=== PATIENT | female | born 1945 | race Caucasian/White ===

== ENCOUNTER 2017-11-17 17:41 | Inpatient (IN) ==
[2017-11-17] MEDS ORDERED: *HR* Etomidate 20 MG/10 ML AMPUL IVP ONE (18:19)
--- NOTE | 2017-11-17 20:10 | Emergency Department Note ---
Disposition Clinical Impression: Dislocation of right shoulder joint Qualifiers: Encounter type: initial encounter Qualified Code(s): S43.004A - Unspecified dislocation of right shoulder joint, initial encounter Glenoid fracture of shoulder Qualifiers: Encounter type: initial encounter Disposition: Admitted As Inpatient Condition: Good Referrals: Arnel Gonzalez MD [Primary Care Provider] - Forms: ED Satisfaction Letter Time of Disposition: 20:36 General Adult HPI - General Chief complaint: ED Extremity Injury, Upper Stated complaint: "sent from u/c for dislocated shoulder" Time Seen by Provider: 11/17/17 17:57 Source: patient Mode of arrival: ambulatory Limitations: no limitations Nursing Notes Reviewed: Yes Vital Signs Reviewed: Yes - History of Present Illness HPI Narrative: 72 yo F here for right shoulder pain. Patient went to urgent care secondary to a fall today while pushing a family member on a swing. She injured her right shoulder. At urgent care they did an x-ray which showed a shoulder dislocation and sent her to the ER. Her pain is all isolated to the right shoulder. She is right hand dominant. No other injuries. Pain Scale: 8 - Related Data Home Medications Medication Instructions Recorded Confirmed Aspirin 11/17/17 Atorvastatin 11/17/17 CloNIDine 11/17/17 Dicyclomine 11/17/17 Fish Oil 11/17/17 Glimepiride 11/17/17 Isosorbide MONOnitrate 11/17/17 Losartan-Hctz 50-12.5 mg Tab 11/17/17 Magnesium Oxide 11/17/17 Metoprolol 11/17/17 Oxybutynin 11/17/17 11/17/17 Tramadol HCl 11/17/17 metFORMIN 11/17/17 Allergies Allergy/AdvReac Type Severity Reaction Status Date / Time carvedilol [From Coreg] AdvReac Palpitation Verified 11/17/17 16:07 s Review of Systems: Gen.: No fevers or chills or new weakness Eyes: Denies double vision or any vision changes Ears: Denies any otalgia Pharynx: Denies sore throat CV: Denies chest pain. Denies palpitations Respiratory: Denies any cough or sputum production. No shortness of breath. GI: Denies any nausea, vomiting, diarrhea, constipation. Denies abdominal pain Neuro: Denies any headache. No problems with ambulation. No numbness. Skin: Denies any rashes or abrasions Psych: Denies any depression or suicidal or homicidal ideation Musculoskeletal: Denies any arthralgias or myalgias Past Medical History - Past Medical History Medical history: Reports: non-contributory - Social History Smoking Status: Never smoker Smokeless Tobacco Status: No Alcohol use: Reports: none Physical Exam - General General appearance: alert, in no apparent distress - Head Head exam: atraumatic, normocephalic - Eye Eye exam: Present: normal appearance - Neck Neck exam: Present: normal inspection - Chest Chest inspection: Present: normal inspection - Respiratory Respiratory exam: Present: normal lung sounds bilaterally - Cardiovascular Cardiovascular exam: Present: regular rate, normal rhythm - Abdominal Exam Abdominal exam: Present: soft, Non-Tender - Expanded Upper Extremity Exam Shoulder exam: Present: tenderness (Diffuse tenderness over the right anterior shoulder), dislocation (Patient with an anterior glenohumeral dislocation. She has crepitus with range of motion in this region.). Absent: full ROM - Neurological Exam Neurological exam: Present: alert, oriented X3 - Psychiatric Psychiatric exam: Present: normal affect, normal mood - Skin Skin exam: Present: warm, dry, intact Course Vital Signs Temperature 98.3 F 11/17/17 17:45 Pulse Rate 78 11/17/17 17:45 Respiratory Rate 18 11/17/17 17:45 Blood Pressure 201/96 11/17/17 17:45 O2 Sat by Pulse Oximetry 97 11/17/17 17:45 Temperature 98.3 F 11/17/17 17:45 Pulse Rate 83 11/17/17 19:07 Respiratory Rate 20 11/17/17 19:24 Blood Pressure 221/113 11/17/17 19:07 O2 Sat by Pulse Oximetry 99 11/17/17 19:24 Oxygen Delivery Oxygen Delivery [] Nasal Cannula Oxygen Delivery [] Nasal Cannula Oxygen Delivery [] Nasal Cannula Oxygen Delivery Room Air Procedures - Orthopedic Joint Reduction Joint #1 Consent Obtained: written consent Time Out Performed: Yes Side: right Joint Reduction Location: shoulder ASA Classification: CLASS I-Normal, healthy patient Analgesia: procedural sedation Shoulder Technique Used (if applicable): traction/counter-traction, external rotation Post-reduction neuro exam: intact Post-reduction vascular: intact Post Reduction X-Ray Obtained: Yes Post Reduction X-Ray Results: not reduced (Patient with an inferior glenoid rim fracture) Splint Applied: Yes Patient Tolerated Procedure: well, no complications Medical Decision Making - MDM Narrative Medical decision making narrative: I spoke with Dr. Wilkes with [facility] to the procedure. I explained to him that she had what appeared to be a Bankart lesion on the x-ray from the urgent care. We proceeded as directed with this. I was concerned based on the size of this Bankart lesion that it may not go back into place. Unfortunately, after reducing the shoulder 3 times and getting it back into appropriate position a Dislocating spontaneously. A follow-up films of the right shoulder shows a glenoid rim fracture. I feel that that she had from the get go. Her shoulder was very easy to reduce but was unable to stay in location. I spoke with Dr. Munroe with Ortho. He took this case as it was a shoulder case. We will admit the patient. Do a CT scan of the shoulder. He will evaluate her in the morning. - Medical Records Medical records reviewed: Yes I reviewed the patient's medical records. - Lab Data Lab results reviewed: Yes I reviewed the patient's lab results. - Radiology Data Radiology results reviewed: Yes I reviewed the patient's radiology results.
[2017-11-17 21:18] LABS: Basophils % 0.3 %; Eosinophils # 0.1 K/mcL (0.0-0.6); Eosinophils % 1.1 %; Hematocrit 33.9 % (35.3-44.9); Hemoglobin 11.4 g/dL (11.5-15.4); Immature Granulocytes % 0.6 % (0-4); Lymphocytes # 2.1 K/mcL (0.6-4.6); Lymphocytes % 16.7 %; Mean Corpuscular HGB Conc 33.6 g/dL (31.6-35.5); Mean Corpuscular Hemoglobin 31.9 pg (28.0-33.3); Mean Platelet Volume 9.1 fL (9.4-12.4); Monocytes # 0.9 K/mcL (0.0-1.3); Monocytes % 6.8 %; Neutrophils # 9.4 K/mcL (1.6-8.9); Platelet Count 263 K/mcL (140-400); Red Blood Count 3.57 M/mcL (3.82-4.97); Segmented Neutrophils % 74.5 %
[2017-11-17] MEDS: *HR* HYDROcodone/Acet 5/325 mg TABLET PO PRN (21:22)
[2017-11-17 21:24] LABS: Prothrombin Time 10.7 Seconds (9.4-12.1)
[2017-11-17 21:27] LABS: Activated Partial Thrombo Time 24.2 Seconds (26.0-36.0)
[2017-11-17 21:38] LABS: Potassium 5.2 mEq/L (3.5-5.1)
[2017-11-17] MEDS ORDERED: Naloxone 0.4 MG/ML INJ IVP PRN (22:24)
[2017-11-17] MEDS ORDERED: *HR* Dextrose 50 % in Water (Syg) 50 ML SYRINGE IVP PRN (22:27)
[2017-11-17] MEDS ORDERED: Dextrose Gel 15 GM/37.5 ML TUBE PO PRN ×2 (22:27)
[2017-11-17] MEDS ORDERED: D5% in Water 1,000 ML IVC PRN (22:27)
[2017-11-17] MEDS ORDERED: Tdap (Boostrix) Vaccine 0.5 ML SYRINGE IM ONE (22:31)
--- NOTE | 2017-11-17 22:36 | Internal Med History&Physical ---
Date of Encounter: 11/17/17 Time of Encounter: 21:30 Assessment and Plan (1) Hypertension Current visit: Yes Status: Acute Continue home medications. Continue monitoring dose tomorrow with small amount of water although patient will be kept nothing by mouth Qualifiers: Hypertension type: essential hypertension Qualified Code(s): I10 - Essential (primary) hypertension (2) Diabetes mellitus Current visit: Yes Status: Acute Patient take pills at home. 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 Patient denies chest pain or shortness of breath. - EKG has been done in ER, not reviewed because it is not available in floor now. - Continue home medication beta josh and atorvastatin. Hold aspirin temporarily for surgery Qualifiers: Coronary Disease-Associated Artery/Lesion type: bypass graft [place] vs. transplanted heart: [place] heart Associated angina: without angina Qualified Code(s): I25.810 - Atherosclerosis of coronary artery bypass graft(s) without angina pectoris (4) DVT prophylaxis Current visit: Yes Status: Acute EPCD. May start anticoagulation after surgery (5) Dislocation of right shoulder joint Current visit: Yes Status: Acute Continue pain medication. Orthopedic consult for surgery Qualifiers: Encounter type: initial encounter Qualified Code(s): S43.004A - Unspecified dislocation of right shoulder joint, initial encounter (6) Anterior dislocation of right shoulder Current visit: No Status: Acute Management as above Qualifiers: Encounter type: initial encounter Qualified Code(s): S43.014A - Anterior dislocation of right humerus, initial encounter Internal Medicine - H&P: HPI Chief complaint: right shoulder pain Admitted From: Home Plans for Post Hospital Care: Home History of present illness: Ms. Muniz is a 72 year old female with history of diabetes, hypertension, CAD S/P CABG and stent about 20 years ago, presented to ER for right foot pain. Patient said he has mechanical fall this afternoon when playing with her grandson. Patient denies loss of consciousness. Patient denies head injury. Patient denies pain on any other part of body except right shoulder. Patient has laceration on the right wrist area, has small amount of bleeding, stopped now. In the emergency room, CT right shoulder shows humeral fracture. Orthopedic consult was informed by ER. Patient is admitted for surgery. Patient denies chest pain, shortness of breath, nausea, or vomiting. Past Med Surg Social Fam HX - Past Medical History Medical history: non-contributory - Social History Smoking Status: Never smoker Smokeless Tobacco Status: No Alcohol use: none Internal Medicine - H&P: Meds Aspirin Enteric Coated [Aspirin EC] 81 mg PO DAILY 11/17/17 [History] Atorvastatin Calcium [Lipitor] 80 mg PO HS 11/17/17 [History] Dicyclomine [Bentyl] 10 mg PO QID 11/17/17 [History] Fish Oil/Dha/Epa [Fish Oil 1,200 mg Fish Oil] 1 each PO TID 11/17/17 [History] Glimepiride [Amaryl] 4 mg PO DAILY 11/17/17 [History] Isosorbide MONOnitrate (24 HR) [Imdur] 60 mg PO DAILY 11/17/17 [History] Levothyroxine [Synthroid] 88 mcg PO 0630 11/17/17 [History] Losartan/Hydrochlorothiazide [Hyzaar 100-25 Tablet] 1 each PO DAILY 11/17/17 [ History] Magnesium Oxide [Mag-Ox] 400 mg PO DAILY 11/17/17 [History] Metformin HCl [Glucophage] 1,000 mg PO DAILY 11/17/17 [History] Metoprolol Tartrate 75 mg PO BID 11/17/17 [History] Multivitamin [One Daily Multivitamin] 1 each PO DAILY 11/17/17 [History] Niacin [Niacor] 500 mg PO DAILY 11/17/17 [History] Oxybutynin [Ditropan] 5 mg PO BID 11/17/17 [History] Tramadol HCl [Ultram] 50 mg PO DAILY PRN 11/17/17 [History] cloNIDine HCl [Clonidine HCl] 0.2 mg PO BID 11/17/17 [History] 3 Allergy/AdvReac Type Severity Reaction Status Date / Time carvedilol [From Coreg] AdvReac Palpitation Verified 11/17/17 16:07 s All Systems PM: A 10-system review of systems was performed and is negative for pertinent findings except as documented above in the HPI. - Constitutional Vitals: Temp Pulse Resp BP Pulse Ox 98.3 F 76 18 179/91 99 11/17/17 17:45 11/17/17 21:12 11/17/17 21:37 11/17/17 21:37 11/17/17 19:24 General appearance: Present: A&O X 3, no acute distress, answers questions appropriately - Head Head exam: Present: atraumatic, normocephalic - Eye Eye exam: Present: PERRL, conjuntiva pink, sclera anicteric Pupils: Present: PERRL - Neck Neck exam general surgery: Present: supple, trachea midline. Absent: lymphadenopathy - Respiratory Respiratory exam: Present: CTAB. Absent: accessory muscle use, rales, rhonchi, wheezes - Cardiovascular Cardiovascular exam: Present: RRR, +S1, +S2. Absent: diastolic murmur, gallop, rubs, systolic murmur - GI/Abdominal GI/Abdominal exam: Present: normal bowel sounds, soft, no peritoneal signs. Absent: distended, tenderness - Extremities Exam Extremities exam: Present: warm, radial pulses palpable and symmetrical. Absent : calf tenderness, cyanotic, pedal edema Additional comments: Right arm in sling. Right shoulder ROM limited due to pain - Neurological Exam Neurological exam: Present: CN II-XII intact, oriented X3, no focal deficits. Absent: pronater drift, facial droop, speech deficit - Skin Skin exam: Present: dry, intact Internal Med - H&P Results - Labs CBC & Chem 7: 11/17/17 21:03 11/17/17 21:03 Labs: Short CBC 11/17/17 Range/Units 21:03 WBC 12.6 H (4.3-11.1) K/mcL Hgb 11.4 L (11.5-15.4) g/dL Hct 33.9 L (35.3-44.9) % Plt Count 263 (140-400) K/mcL Neutrophils # 9.4 H (1.6-8.9) K/mcL BMP 11/17/17 21:03 Sodium 127 L Potassium 5.2 H Chloride 95 L Carbon Dioxide 23 BUN 26 H Creatinine 1.11 Glucose 128 H Calcium 10.0
[2017-11-17] MEDS ORDERED: *HR* OxyCODONE/APAP 5/325 TABLET PO PRN (23:13)
[2017-11-17] MEDS: cloNIDine HCl 0.1 MG TABLET PO SCH (23:33)
[2017-11-18] MEDS ORDERED: Insulin LISPRO 300 UNITS/3 ML VIAL SQ SCH
[2017-11-18] MEDS: *HR* HYDROcodone/Acet 5/325 mg TABLET PO PRN (02:36)
[2017-11-18 04:45] LABS: Basophils % 0.3 %; Eosinophils # 0.1 K/mcL (0.0-0.6); Eosinophils % 0.9 %; Hematocrit 31.8 % (35.3-44.9); Hemoglobin 10.9 g/dL (11.5-15.4); Immature Granulocytes % 0.4 % (0-4); Lymphocytes # 1.7 K/mcL (0.6-4.6); Mean Corpuscular HGB Conc 34.3 g/dL (31.6-35.5); Mean Corpuscular Hemoglobin 32.1 pg (28.0-33.3); Mean Corpuscular Volume 93.5 fL (83.0-100.0); Mean Platelet Volume 9.3 fL (9.4-12.4); Monocytes # 0.9 K/mcL (0.0-1.3); Monocytes % 9.5 %; Neutrophils # 7.1 K/mcL (1.6-8.9); Platelet Count 245 K/mcL (140-400); Segmented Neutrophils % 71.9 %
[2017-11-18 05:11] LABS: BUN/Creatinine Ratio 25 (6-26); Blood Urea Nitrogen 25 mg/dL (8-23); Calcium 9.5 mg/dL (8.6-10.3); Carbon Dioxide 25 mEq/L (23-29); Chloride 94 mEq/L (98-107); Glucose 169 mg/dL (70-105); Magnesium 1.6 mg/dL (1.6-2.6); Osmolality,Calculated 272 (280-300); Potassium 4.2 mEq/L (3.5-5.1); Sodium 127 mEq/L (136-145); eGFR For African Americans > 60 (> 60); eGFR For Non-African Americans 55 (> 60)
--- NOTE | 2017-11-18 07:03 | Orthopedic Consult Note ---
Date of Encounter: 11/18/17 Time of Encounter: 07:00 History of Present Illness HPI: Ms. Muniz is a 72 year old female Status post fall yesterday playing with her grandson injuring her right arm. Dislocated right shoulder. Patient was seen in the emergency room I spoke with the emergency room doctor multiple attempts at closed reduction revealed the shoulder to continue to be unstable. Patient admitted with unstable shoulder. Patient denies any head trauma. Patient denies any numbness or tingling. Physical exam Alert and oriented 3 Right upper extremity Neurovascular intact X-rays show dislocated shoulder as well as CT scan as well as a bony Bankart. We discussed different treatment options. The exact cause of instability is unknown this to be an associated rotator cuff tear or significant labral tear. We discussed different treatment options. Based on the patient's age and activity level recommendations for a right reverse shoulder replacement to provide a consistent resolution to the problem is a low risk of revision surgery. We reviewed the risks and benefits as well as recovery. All questions were answered. The patient agreed to this treatment plan and appeared to understand the plan is reviewed. Past Med Surg Social Fam HX - Past Medical History Medical history: non-contributory Psychiatric history: no psych history - Past Surgical History Surgical History: hysterectomy - Social History Smoking Status: Never smoker Smokeless Tobacco Status: No Alcohol use: none Drug use: none Medications and Allergies Aspirin Enteric Coated [Aspirin EC] 81 mg PO DAILY 11/17/17 [History] Atorvastatin Calcium [Lipitor] 80 mg PO HS 11/17/17 [History] Dicyclomine [Bentyl] 10 mg PO QID 11/17/17 [History] Fish Oil/Dha/Epa [Fish Oil 1,200 mg Fish Oil] 1 each PO TID 11/17/17 [History] Glimepiride [Amaryl] 4 mg PO DAILY 11/17/17 [History] Isosorbide MONOnitrate (24 HR) [Imdur] 60 mg PO DAILY 11/17/17 [History] Levothyroxine [Synthroid] 88 mcg PO 0630 11/17/17 [History] Losartan/Hydrochlorothiazide [Hyzaar 100-25 Tablet] 1 each PO DAILY 11/17/17 [ History] Magnesium Oxide [Mag-Ox] 400 mg PO DAILY 11/17/17 [History] Metformin HCl [Glucophage] 1,000 mg PO DAILY 11/17/17 [History] Metoprolol Tartrate 75 mg PO BID 11/17/17 [History] Multivitamin [One Daily Multivitamin] 1 each PO DAILY 11/17/17 [History] Niacin [Niacor] 500 mg PO DAILY 11/17/17 [History] Oxybutynin [Ditropan] 5 mg PO BID 11/17/17 [History] Tramadol HCl [Ultram] 50 mg PO DAILY PRN 11/17/17 [History] cloNIDine HCl [Clonidine HCl] 0.2 mg PO BID 11/17/17 [History] 3 Allergy/AdvReac Type Severity Reaction Status Date / Time carvedilol [From Coreg] AdvReac Palpitation Verified 11/17/17 16:07 s All Systems Reviewed: The remainder of the systems were reviewed and are negative Physical Exam - Constitutional Vitals: Temp Pulse Resp BP Pulse Ox 97.9 F 64 16 162/78 96 11/18/17 05:07 11/18/17 05:07 11/18/17 05:07 11/18/17 05:07 11/18/17 05:07 Results - Labs Result Diagrams: 11/18/17 04:08 11/18/17 04:08 Labs: Abnormal lab results RBC 3.40 M/mcL (3.82-4.97) L 11/18/17 04:08 Hgb 10.9 g/dL (11.5-15.4) L 11/18/17 04:08 Hct 31.8 % (35.3-44.9) L 11/18/17 04:08 MPV 9.3 fL (9.4-12.4) L 11/18/17 04:08 APTT 24.2 Seconds (26.0-36.0) L 11/17/17 21:03 Sodium 127 mEq/L (136-145) L 11/18/17 04:08 Chloride 94 mEq/L (98-107) L 11/18/17 04:08 BUN 25 mg/dL (8-23) H 11/18/17 04:08 Est GFR (Non-Af Amer) 55 (> 60) L 11/18/17 04:08 Glucose 169 mg/dL (70-105) H 11/18/17 04:08 POC Glucose 178 (58-89) H 11/18/17 06:25 Calculated Osmolality 272 (280-300) L 11/18/17 04:08 H & H 11/18/17 Range/Units 04:08 Hgb 10.9 L (11.5-15.4) g/dL Hct 31.8 L (35.3-44.9) % All other labs normal. Consult Discharge Plan - Plan Referrals: Arnel Gonzalez MD [Primary Care Provider] -
[2017-11-18] MEDS: cloNIDine HCl 0.1 MG TABLET PO SCH ×2 (08:35→21:53)
--- NOTE | 2017-11-18 08:38 | Cardiology Consult Note ---
Date of Encounter: 11/18/17 Time of Encounter: 08:37 Assessment and Plan (1) Pre-operative cardiovascular examination Current Visit: Yes Status: Acute Pre-op cardiovascular risk stratification for right reverse shoulder replacement. Hx of 3V CABG in 1995 followed by PCI to LAD shortly after. Pharmacologic nuclear stress test 01/2017 negative for ischemia or infarct. TTE 01/2017 EF preserved, no significant valvular dysfunction. EKG shows LVH, no significant changes compared to prior. Pt denies chest pain or dyspnea. She reports being able to climb two flights of stairs, walk a block, without experiencing chest pain or dyspnea. Pt is acceptable cardiac risk to undergo orthopedic surgery. No further cardiac testing is warranted prior to surgery. Will also discuss with Dr. Hill and make changes as necessary. (2) CAD (coronary artery disease) Current Visit: Yes Status: Acute Hx of 3V CABG in 1995 followed by PCI to LAD shortly after. Testing 2016 negative for ischemia, normal LV function. Denies chest pain or dyspnea. Recommend resuming ASA. Continue BB, Statin. Qualifiers: Coronary Disease-Associated Artery/Lesion type: bypass graft [place] vs. transplanted heart: [place] heart Associated angina: without angina Qualified Code(s): I25.810 - Atherosclerosis of coronary artery bypass graft(s) without angina pectoris (3) Hypertension Current Visit: Yes Status: Acute Elevated, likely secondary to pain. Has not received antihypertensives this AM. BP was controlled at recent outpt cardiology visit. Adjust antihypertensives as necessary. Qualifiers: Hypertension type: essential hypertension Qualified Code(s): I10 - Essential (primary) hypertension Discussion w patient/family: The assessment and plan as outlined above was discussed with the patient and/or family members who expressed understanding and agreement. All questions were answered. Thank you for involving us in the care of your patient. Please call with any questions. I will discuss all the above with Dr. Hill and make changes as necessary. History of Present Illness Consult date: 11/18/17 Requesting physician: Johny Munroe Consult reason: pre-op risk stratification Chief complaint: right shoulder pain History of present illness: Ms. Muniz is a 72 year old female with a history of DMII, HTN, CAD, 3V CABG ( 1995), followed shortly thereafter by stent to the LAD. She presented to ER for right shoulder pain. Per pt, sustained a mechanical fall yesterday afternoon while playing with her grandson. Patient denies loss of consciousness. Patient denies head injury. In the emergency room, CT right shoulder shows humeral fracture. Plan is for pt to undergo right reverse shoulder replacement with Dr. Munroe today. Cardiology was consulted for pre-op cardiac risk stratification. Pt denies chest pain or dyspnea. Reports being able to climb 2 flights of stairs at a slower pace without experiencing chest pain or dyspnea. She had a negative stress test within the past year, 01/2017 and TTE 01/2017 with preserved EF. She follows with Dr. You in the cardiology office, last seen by him 11/11 with no complaints at that time and follow-up in 1 year recommended. Prior cardiovascular studies: TTE 01/2017: LVEF 60-65%. Mild concentric LVH. Mild diastolic dysfunction. Mild TR. Borderline mild pHTN. Pharmacological nuclear stress test 01/2017: Negative for ischemia or prior infarct. Pharmacological nuclear stress test 07/2012: Negative for ischemia or prior infarct. TTE 03/2015 EF 60%. Mild concentric LVH. Moderate diastolic dysfunction. No significant valvular dysfunction. No pulmonary hypertension. Past Med Surg Social Fam HX - Past Medical History Medical history: coronary artery disease, diabetes, hypertension Psychiatric history: no psych history - Past Surgical History Surgical History: angioplasty/stent, coronary bypass (CABG), hysterectomy - Social History Smoking Status: Never smoker Smokeless Tobacco Status: No Alcohol use: none Drug use: none Medications and Allergies Aspirin Enteric Coated [Aspirin EC] 81 mg PO DAILY 11/17/17 [History] Atorvastatin Calcium [Lipitor] 80 mg PO HS 11/17/17 [History] Dicyclomine [Bentyl] 10 mg PO QID 11/17/17 [History] Fish Oil/Dha/Epa [Fish Oil 1,200 mg Fish Oil] 1 each PO TID 11/17/17 [History] Glimepiride [Amaryl] 4 mg PO DAILY 11/17/17 [History] Isosorbide MONOnitrate (24 HR) [Imdur] 60 mg PO DAILY 11/17/17 [History] Levothyroxine [Synthroid] 88 mcg PO 0630 11/17/17 [History] Losartan/Hydrochlorothiazide [Hyzaar 100-25 Tablet] 1 each PO DAILY 11/17/17 [ History] Magnesium Oxide [Mag-Ox] 400 mg PO DAILY 11/17/17 [History] Metformin HCl [Glucophage] 1,000 mg PO DAILY 11/17/17 [History] Metoprolol Tartrate 75 mg PO BID 11/17/17 [History] Multivitamin [One Daily Multivitamin] 1 each PO DAILY 11/17/17 [History] Niacin [Niacor] 500 mg PO DAILY 11/17/17 [History] Oxybutynin [Ditropan] 5 mg PO BID 11/17/17 [History] Tramadol HCl [Ultram] 50 mg PO DAILY PRN 11/17/17 [History] cloNIDine HCl [Clonidine HCl] 0.2 mg PO BID 11/17/17 [History] 3 Allergy/AdvReac Type Severity Reaction Status Date / Time carvedilol [From Coreg] AdvReac Palpitation Verified 11/17/17 16:07 s All Systems Review: The remainder of the systems were reviewed and are negative - Musculoskeletal Musculoskeletal: other (right shoulder pain) Physical Examination Vital Signs, Last 4 Hours Temp Pulse Resp BP Pulse Ox 11/18/17 05:07 97.9 F 64 16 162/78 96 Vital Signs Temp Pulse Pulse Pulse Pulse Resp Resp 11/18/17 05:07 97.9 F 64 16 11/18/17 01:15 98.1 F 65 16 11/17/17 23:07 98.5 F 73 16 11/17/17 21:37 18 11/17/17 21:12 76 18 11/17/17 19:24 20 11/17/17 19:07 83 69 73 17 11/17/17 17:45 98.3 F 78 18 Resp Resp BP BP BP BP Pulse Ox 11/18/17 05:07 162/78 96 11/18/17 01:15 143/75 94 11/17/17 23:07 184/86 94 11/17/17 21:37 179/91 11/17/17 21:12 179/91 11/17/17 19:24 99 11/17/17 19:07 18 16 221/113 214/108 195/122 11/17/17 17:45 201/96 97 Intake and Output 11/17/17 11/18/17 11/18/17 23:59 07:59 15:59 Intake Total 0 / 0 0 / 0 Output Total 0 / 0 500 / 500 Balance 0 / 0 -500 / -500 Intake: Oral 0 / 0 0 / 0 Output: Urine 0 / 0 500 / 500 Other: # Voids 1 Weight 90.764 kg 89.499 kg Patient Weight 11/18/17 23:59 Weight 89.499 kg General: Conversant, No Apparent Distress HEENT: Atraumatic, Normocephaly, Mucus Membranes Moist Neck: No JVD, Normal carotid pulses Cardiac: Reg Rate and Rhythm, Normal S1 and S2, No Murmur Lungs: Normal Breath Sounds, No Wheeze, Rales, Rhonchi Neuro: Alert and responsive, No focal deficits noted Abdomen: Soft, Non-Tender Skin: No rashes noted on visualized skin Musculoskeletal: No Chest Wall Tenderness Extremities: No Clubbing, No Cyanosis, No Edema, Normal Pulses Results 11/18/17 04:08 11/18/17 04:08 Lab Results 11/18/17 11/18/17 04:08 04:08 WBC 9.9 Hgb 10.9 L Hct 31.8 L Plt Count 245 Sodium 127 L Potassium 4.2 Chloride 94 L Carbon Dioxide 25 BUN 25 H Creatinine 0.99 Glucose 169 H Calcium 9.5 Magnesium 1.6 Short CBC 11/18/17 11/17/17 Range/Units 04:08 21:03 WBC 9.9 12.6 H (4.3-11.1) K/mcL Hgb 10.9 L 11.4 L (11.5-15.4) g/dL Hct 31.8 L 33.9 L (35.3-44.9) % Plt Count 245 263 (140-400) K/mcL Neutrophils # 7.1 9.4 H (1.6-8.9) K/mcL BMP 11/18/17 11/17/17 Range/Units 04:08 21:03 Sodium 127 L 127 L (136-145) mEq/L Potassium 4.2 5.2 H (3.5-5.1) mEq/L Chloride 94 L 95 L (98-107) mEq/L Carbon Dioxide 25 23 (23-29) mEq/L BUN 25 H 26 H (8-23) mg/dL Creatinine 0.99 1.11 (0.60-1.20) mg/dL Glucose 169 H 128 H (70-105) mg/dL Calcium 9.5 10.0 (8.6-10.3) mg/dL Impressions Shoulder X-Ray 11/17/17 19:20 IMPRESSION: Findings compatible with anterior shoulder dislocation with associated inferior glenoid rim fracture. D/ / Spencer Beckman / Spencer Beckman Interpreting Provider: Spencer Beckman Chest X-Ray 11/17/17 20:34 IMPRESSION: No acute intrathoracic process identified. Anterior dislocation of the right shoulder with fracture of the inferior right glenoid. D/ / Sebastien Styles MD / Sebastien Styles MD Interpreting Provider: Sebastien Styles MD Shoulder CT 11/17/17 20:51 IMPRESSION: 1. Anterior dislocation of the shoulder with Hill-Sachs deformity of the humeral head and displaced bony Bankart fracture of the anterior inferior glenoid. 2. Moderate sized hemarthrosis with intra-articular displaced fracture fragments present. D/ / Sebastien Styles MD / Sebastien Styles MD Interpreting Provider: Sebastien Styles MD Active Medications Hydrocodone Bitart/Acetaminophen ([place] 5-325 Mg) 1 tab PO Q4HR PRN PRN Reason: Moderate Pain Stop: 05/19/18 21:06 Last Admin: 11/18/17 02:36 Dose: 1 tab Atorvastatin Calcium (Lipitor) 80 mg PO HS [facility] Stop: 05/20/18 21:01 Clonidine HCl (Clonidine Hcl) 0.2 mg PO BID [facility] Stop: 05/19/18 23:16 Last Admin: 11/18/17 08:35 Dose: 0.2 mg Dextrose/Water (Dextrose 50% (Syg)) 25 ml IVP AD PRN PRN Reason: Hypoglycemia Stop: 05/19/18 22:28 Glucagon (Glucagen) 1 mg IM ONCE PRN PRN Reason: Hypoglycemia Stop: 05/19/18 22:28 Glucose (Gluctose) 15 gm PO ONCE PRN PRN Reason: Hypoglycemia Stop: 05/19/18 22:28 Glucose (Gluctose) 30 gm PO ONCE PRN PRN Reason: Hypoglycemia Stop: 05/19/18 22:28 HCTZ/Losartan Potassium (Hyzaar 50/12.5) 2 each PO DAILY [facility] Stop: 05/20/18 09:01 Last Admin: 11/18/17 08:35 Dose: 2 each Dextrose (Dextrose 5%) 1,000 mls @ 100 mls/hr IVC .Q10H PRN PRN Reason: HYPOGLYCEMIA Stop: 05/19/18 22:28 Insulin Human Lispro (Humalog) 0 units SQ Q6HR [facility] PRN Reason: Protocol Stop: 05/20/18 00:01 Isosorbide Mononitrate (Imdur) 60 mg PO DAILY [facility] Stop: 05/20/18 09:01 Last Admin: 11/18/17 08:35 Dose: 60 mg Metoprolol Tartrate (Lopressor) 75 mg PO BID [facility] Stop: 05/19/18 23:16 Last Admin: 11/18/17 08:34 Dose: 75 mg Naloxone HCl (Narcan) 0.4 mg IVP Q2MIN PRN PRN Reason: SEE COMMENTS Stop: 05/19/18 22:25 Oxycodone/Acetaminophen (Percocet 5/325) 1 each PO Q6H PRN PRN Reason: Severe Pain Stop: 05/19/18 23:14 Last Admin: 11/18/17 08:36 Dose: 1 each - Imaging and Cardiology Stress Test: report reviewed Echo: report reviewed - EKG Interpretation EKG results cardiology: personally reviewed (SR, LVH) Consult Discharge Plan - Plan Referrals: Arnel Gonzalez MD [Primary Care Provider] -
[2017-11-18] MEDS ORDERED: Isosorbide MONOnitrate (24 HR) 60 MG TAB.ER.24H PO SCH (09:00)
[2017-11-18] MEDS ORDERED: Losartan/HCTZ 50-12.5 TABLET PO SCH (09:00)
[2017-11-18] MEDS ORDERED: Ringers Solution, Lactated 1,000 ML IVC SCH ×3 (09:45→14:00)
[2017-11-18] MEDS ORDERED: Lidocaine -MPF 2% 2 ML VIAL ONE (09:54)
[2017-11-18] MEDS ORDERED: Ondansetron 4 MG/2 ML VIAL ONE ×3 (09:54→13:25)
[2017-11-18] MEDS ORDERED: *HR* FentaNYL (PF) 100 MCG/2 ML VIAL ONE (09:54)
[2017-11-18] MEDS ORDERED: *HR* Propofol 200 MG/20 ML VIAL IVP ONE (09:54)
[2017-11-18] MEDS ORDERED: *HR* Succinylcholine 200 MG/10 ML VIAL IVP ONE (09:54)
[2017-11-18] MEDS ORDERED: ROPIVACAINE HCL/PF 0.5% 30 ML VIAL ONE (10:02)
[2017-11-18] MEDS ORDERED: Bupivacaine/Clonidine Syringe 1 EACH SYRINGE ONE (10:02)
[2017-11-18] MEDS ORDERED: Dexamethasone 4 MG/ML VIAL ONE ×2 (10:03→11:57)
[2017-11-18] MEDS ORDERED: Ethanol\\Acetic Acid\\Na Ace\\Ben 1,000 ML IRRIG.SOLN IR ONE (10:08)
--- NOTE | 2017-11-18 10:51 | Anesthesia Evaluation PreOp ---
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: Denies Any Significant HX Other Medical History: Diabetes Type II (controlled with oral medications only) Anesthesia History: No Prior Anesthetic Complications Alcohol Use: none Drug use: none Medications and Allergies Aspirin Enteric Coated [Aspirin EC] 81 mg PO DAILY 11/17/17 [History] Atorvastatin Calcium [Lipitor] 80 mg PO HS 11/17/17 [History] Dicyclomine [Bentyl] 10 mg PO QID 11/17/17 [History] Fish Oil/Dha/Epa [Fish Oil 1,200 mg Fish Oil] 1 each PO TID 11/17/17 [History] Glimepiride [Amaryl] 4 mg PO DAILY 11/17/17 [History] Isosorbide MONOnitrate (24 HR) [Imdur] 60 mg PO DAILY 11/17/17 [History] Levothyroxine [Synthroid] 88 mcg PO 0630 11/17/17 [History] Losartan/Hydrochlorothiazide [Hyzaar 100-25 Tablet] 1 each PO DAILY 11/17/17 [ History] Magnesium Oxide [Mag-Ox] 400 mg PO DAILY 11/17/17 [History] Metformin HCl [Glucophage] 1,000 mg PO DAILY 11/17/17 [History] Metoprolol Tartrate 75 mg PO BID 11/17/17 [History] Multivitamin [One Daily Multivitamin] 1 each PO DAILY 11/17/17 [History] Niacin [Niacor] 500 mg PO DAILY 11/17/17 [History] Oxybutynin [Ditropan] 5 mg PO BID 11/17/17 [History] Tramadol HCl [Ultram] 50 mg PO DAILY PRN 11/17/17 [History] cloNIDine HCl [Clonidine HCl] 0.2 mg PO BID 11/17/17 [History] 3 Allergy/AdvReac Type Severity Reaction Status Date / Time carvedilol [From Coreg] AdvReac Palpitation Verified 11/17/17 16:07 s - Meds/Allergy Pre-op Review Medications Reviewed: Yes Allergies Reviewed: Yes Beta Blockers on Current Med List: Yes (metoprolol) If Beta Blockers taken, Date/Time (Last Dose taken): 11-18-17 metoprolol 8:34 Anesthesia Results - Labs 11/18/17 04:08 11/18/17 04:08 - Imaging Additional studies: TTE: Indications: Chest pain Impressions: LVEF 60-65%. Normal LV chamber size and function. Mild concentric left ventricular hypertrophy. Atypical septal motion consistent with post-operative status. Mild left ventricular diastolic dysfunction. Normal right ventricular structure and function. Mild tricuspid regurgitation. Borderline mild pulmonary hypertension. Anesthesia Exam Last Vital Signs Temp 97.9 F 11/18/17 05:07 Pulse 64 11/18/17 05:07 Resp 16 11/18/17 05:07 BP 162/78 11/18/17 05:07 Pulse Ox 96 11/18/17 05:07 Weight: 89 kg NPO (# of Hours): > 8 hrs - HEENT Pupil (Motor): Pupils equal, EOMI Mallampati: III Teeth: Edentulous Oral Opening: Greater than 3 - IBM BPM ARCHITECT LOC: Oriented - Cardiac Rhythm: Regular Murmur: None - Pulmonary Breath Sounds: bilateral Clear Respiratory Effort: Symmetrical Anesthesia Assess/Plan ASA Score: 3 Modified [place] Scale for Level of Consciousness: Cooperative, oriented, and tranquil Anesthetic Plan: General, Regional Monitoring Plan: Standard Monitors Recovery Plan: PACU
[2017-11-18] MEDS ORDERED: *HR* Midazolam HCl 2 MG/2 ML VIAL ONE (10:53)
[2017-11-18] MEDS ORDERED: *HR* PHENYLEPHRINE 1,000 MCG/10 ML SYRINGE IVP ONE (11:59)
[2017-11-18] MEDS ORDERED: EPHEDrine 50 MG/ML VIAL ONE (12:01)
[2017-11-18] MEDS ORDERED: *HR* Labetalol 20 MG/4 ML SYRINGE IVP PRN (12:14)
[2017-11-18] MEDS ORDERED: Acetaminophen IV 1,000 MG/100 ML INFUS..BTL IVPB ONE (12:14)
[2017-11-18] MEDS ORDERED: *HR* Promethazine 25 MG/ML VIAL IVP PRN (12:14)
--- NOTE | 2017-11-18 12:19 | Anesthesia Procedures ---
Date of Encounter: 11/18/17 Time of Encounter: 11:40 Procedures: Anesthesia - Nerve Block Procedure Date: 11/18/17 Time: 11:40 Surgical Procedure: right total shoulder, reverse ball and socket Checklist: Correct Patient Identifier, Correct procedure, History checked Correct side: Right Blood Thinner: No Monitor Applied: EKG, BP, Pulse Oximetry Supplemental Oxygen via Nasal Cannula (L/min): 2 Sedation: Fentanyl (mcg): 100 Indication: Post Op Analgesia Pre-op Neuro Deficits: No Block Type: Supraclavicular, Other (ICP) Catheter placed: No Sterile Technique: Yes Ultrasound used: Yes Anatomy identified: Yes Visual spread of Local: Yes Blood on Needle Aspiration: No Smooth Injection of Local: Yes Pain with Injection of Local: No Prep: Chlorhexadine Needle: 22 x 50 mm Stimuplex Local: 0.25% Bupivicaine w/Clonidine 20 mcg/cc (10 ml for ICP), Ropivacaine (0.5 % with 8 of decadron 30 ml) Volume (cc): 40 total Number of Attempts: 1 Complications: None/effective block Vitals: O2 Sat Height 1.78 m Height 1.78 m Height 1.78 m Weight 89.499 kg Weight 90.764 kg Weight 98.43 kg O2 Sat by Pulse Oximetry 98 O2 Sat by Pulse Oximetry 98 O2 Sat by Pulse Oximetry 96 O2 Sat by Pulse Oximetry 94 O2 Sat by Pulse Oximetry 94 O2 Sat by Pulse Oximetry 99 O2 Sat by Pulse Oximetry 97 Vital Signs Temp Pulse Resp BP Pulse Ox 98.3 F 78 18 201/96 97 11/17/17 17:45 11/17/17 17:45 11/17/17 17:45 11/17/17 17:45 11/17/17 17:45
--- NOTE | 2017-11-18 12:32 | Orthopedic Operative Note ---
Date of procedure: 11/18/17 Pre-op diagnosis: Unstable right shoulder/bony Bankart/rotator cuff tear Post-op diagnosis: same Procedure: Procedure: Total Shoulder Replacment Reverse, right Estimated blood loss: 100 cc Hardware: Metal and polyethylene replacement: Arthrex small glenoid baseplate, 2 4.5 screws. 1 6.5 screw, 39+4 glenosphere, 6 humeral stem, poly insert 3 constrained Exam Under anesthesia: Unstable shoulder on exam would not stay in a reduced position. Procedural Notes: Anterior inferior quadrant bony Bankart attracted medially with a tear of the supraspinatus tendon. Operative procedure: The patient was brought to the operating room and placed on the operating room table. After general anesthesia was administered the operative shoulder was examined. Findings were noted. The patient was placed in the modified beachchair position. All pressure points were padded appropriately. And the head was stabilized in the neutral position. The operative extremity was prepped and draped in the sterile surgical fashion. The patient received IV antibiotics prior to skin incision. A standard deltopectoral approach was made to the operative shoulder. Incision was made to the skin and subcutaneous tissue,hemo stasis was obtained with Bovie cautery. Using careful blunt dissection the cephalic vein was identified and mobilized medially. The deltopectoral interval was developed and the clavipectoral fascia was incised. The subscap was released off the lesser tuberosity and tagged with #2 FiberWire suture subscap was irreparable. The humerus was already dislocated dislocated patient noted to have tear supraspinatus tendon, and the humeral cut was made along the anatomic neck. Anterior and posterior Bankart retractors were placed to expose the glenoid. Patient had a bony Bankart fragment anterior inferior quadrant did not compromise the platform of the glenoid. The glenoid guide was seated and the centering hole was made. It was reamed with the appropriate reamer. The small baseplate was seated and secured with (2) 4.5 screws and one 6.5 screw. The baseplate was irrigated and dried and the 39+4 Glenosphere was seated and secured with the Navarro taper. The Navarro taper was tested and found to be secure the humerus was redislocated and prepared with the diaphyseal reamers, followed by a broaching process up to the appropriate size 6 in the patient's anatomic version. The metaphyseal reamer was then utilized. Trial reduction found the shoulder to be relocatable. Trial components were removed and The appropriate 6 stem was impacted in place in the patient's anatomic version. Trial reduction found the shoulder to be relocatable and stable with the appropriate 3 constrained Eda Trial component was removed and the real implant was seated and secured the shoulder was reduced. The shoulder had excellent motion and excellent stability and no evidence of dislocation. The deep tissue was irrigated with pulse irrigation. The PA close the shoulder. The deltopectoral interval was closed with a running #1 PDS suture, subcutaneous tissue was irrigated and closed with 0 PDS suture, the skin was closed with Dermabond. The patient was placed in a sterile dressing, abduction brace and extubated. The patient was then transferred to the recovery room in stable condition. Anesthesia: GETA Surgeon: Johny Munroe Was there an medical record assistant present: Yes Cotton Ball Bagger: Karla Hudson Estimated blood loss (cc): 100 Condition: stable Disposition: PACU
[2017-11-18 13:17] LABS: Hematocrit 29.9 % (35.3-44.9); Hemoglobin 10.3 g/dL (11.5-15.4)
[2017-11-18] MEDS ORDERED: Ondansetron 4 MG/2 ML VIAL IVP PRN ×2 (13:23→14:00)
--- NOTE | 2017-11-18 13:28 | Anesthesia Evaluation Post Op ---
Date of Encounter: 11/18/17 Time of Encounter: 13:28 - Vital Signs Vital Signs: Last Vital Signs Temp 98.1 F 11/18/17 13:19 Pulse 74 11/18/17 13:19 Resp 16 11/18/17 13:19 BP 156/83 11/18/17 13:19 Pulse Ox 95 11/18/17 13:19 - Lungs Lungs: Clear Ascult./Percussion - Airway Airway: Non-obstructed - Cardiovascular Regular Rate - Mental Status Mental Status: Alert & Oriented, Answers Appropriately - Pain Pain Scale: 2 - Nausea Vomiting Nausea Vomiting: Responds to treatment with IV Meds - Hydration Hydration: NPO - Discharge PostOp Status: Transfer Patient to floor
[2017-11-18] MEDS ORDERED: *HR* OxyCODONE/APAP 5/325 TABLET PO PRN (14:00)
[2017-11-18] MEDS ORDERED: Temazepam 15 MG CAPSULE PO PRN (14:00)
[2017-11-18] MEDS ORDERED: Dextrose Gel 15 GM/37.5 ML TUBE PO PRN ×2 (14:00)
[2017-11-18] MEDS ORDERED: Naloxone 0.4 MG/ML INJ IVP PRN (14:00)
[2017-11-18] MEDS ORDERED: *HR* Dextrose 50 % in Water (Syg) 50 ML SYRINGE IVP PRN (14:00)
[2017-11-18] MEDS ORDERED: D5% in Water 1,000 ML IVC PRN (14:00)
[2017-11-18] MEDS ORDERED: *HR* HYDROcodone/Acet 5/325 mg TABLET PO PRN (14:00)
[2017-11-18] MEDS ORDERED: MOM Conc 10 ML UD.LIQ PO PRN (14:00)
[2017-11-18] MEDS ORDERED: Sennosides 8.6 MG TABLET PO PRN (14:00)
[2017-11-18 17:36] LABS: Bilirubin,Urine Negative (Negative); Blood,Urine Negative (Negative); Clarity,Urine Cloudy (Clear); Color,Urine Yellow (Yellow); Glucose,Urine (UA) 250 mg/dL (Normal); Ketones,Urine Trace mg/dL (Negative); Leukocyte Esterase,Urine Small (Negative); Nitrite,Urine Positive (Negative); PH,Urine 6.5 pH Units (5.0-8.0); Protein,Urine Trace mg/dL (Neg-Trace); Specific Gravity,Urine 1.022 (1.010-1.025); Urobilinogen,Urine Normal (Normal)
[2017-11-18 17:40] LABS: Bacteria,Urine Moderate per hpf (None-Few); Hyaline Casts,Urine None Seen per lpf (None-Few); RBC,Urine 0-3 per hpf (0-3); Squamous Epithelial Cell,Urine Many per lpf (None-Few)
[2017-11-18] MEDS: *HR* Enoxaparin 30 MG/0.3 ML SYRINGE SQ SCH (17:40)
[2017-11-18] MEDS: Insulin LISPRO 300 UNITS/3 ML VIAL SQ SCH (17:40)
--- NOTE | 2017-11-18 17:42 | Internal Med Progress Note ---
Date of Encounter: 11/18/17 Time of Encounter: 17:42 - Assessment and plan (1) Dislocation of right shoulder joint Current Visit: Yes Status: Acute Assessment and plan: Right shoulder CT showed anterior dislocation of shoulder, moderate sized hemarthrosis with intra-articular displaced fracture fragments. Orthopedic surgery was consulted, patient underwent right total shoulder replacement reverse, today, after cardiology clearance with intermediate perioperative risk. Local wound care per orthopedics recommendations. Pain control with when necessary oxycodone. Physical and occupational therapy evaluation. Qualifiers: Encounter type: initial encounter Qualified Code(s): S43.004A - Unspecified dislocation of right shoulder joint, initial encounter (2) CAD (coronary artery disease) Current Visit: Yes Status: Chronic Assessment and plan: Continue aspirin, statin, beta josh and ARB. Qualifiers: Coronary Disease-Associated Artery/Lesion type: bypass graft [place] vs. transplanted heart: [place] heart Associated angina: without angina Qualified Code(s): I25.810 - Atherosclerosis of coronary artery bypass graft(s) without angina pectoris (3) Diabetes mellitus Current Visit: Yes Status: Chronic Assessment and plan: Blood sugars noted to be elevated. Start sliding scale insulin. Continue Accu- Chek blood glucose monitoring. Diabetic diet. Qualifiers: Diabetes mellitus type: type 2 Diabetes mellitus rodent exterminator insulin use: without rodent exterminator use Diabetes mellitus complication status: with hyperglycemia Qualified Code(s): E11.65 - Type 2 diabetes mellitus with hyperglycemia (4) Hypertension Current Visit: Yes Status: Chronic Qualifiers: Hypertension type: essential hypertension Qualified Code(s): I10 - Essential (primary) hypertension (5) Hypothyroidism Current Visit: Yes Status: Chronic Assessment and plan: Resume levothyroxine. Qualifiers: Hypothyroidism type: unspecified Qualified Code(s): E03.9 - Hypothyroidism , unspecified (6) Hyponatremia Current Visit: Yes Status: Chronic Assessment and plan: Likely related to use of diuretics. Gentle IV hydration. Monitor serum sodium closely. Patient is asymptomatic. - Subjective Interval history: Just returned from right shoulder surgery. Reports numbness in right arm but no pain due to nerve block. No nausea, vomiting, abdominal pain. - Constitutional Vitals: Temp Pulse Resp BP Pulse Ox 98.4 F 90 18 161/87 99 11/18/17 17:28 11/18/17 17:28 11/18/17 17:28 11/18/17 17:28 11/18/17 17:28 General appearance: Present: A&O X 3, answers questions appropriately - Respiratory Respiratory exam: Present: CTAB. Absent: accessory muscle use, rales, rhonchi, wheezes - Cardiovascular Cardiovascular exam: Present: RRR, +S1, +S2. Absent: diastolic murmur, gallop, rubs, systolic murmur - GI/Abdominal GI/Abdominal exam: Present: normal bowel sounds, soft, no peritoneal signs. Absent: distended, tenderness Internal Medicine: Result - Labs CBC & Chem 7: 11/19/17 05:58 11/19/17 05:58 Labs: Short CBC 11/18/17 11/18/17 Range/Units 04:08 13:07 WBC 9.9 (4.3-11.1) K/mcL Hgb 10.9 L 10.3 L (11.5-15.4) g/dL Hct 31.8 L 29.9 L (35.3-44.9) % Plt Count 245 (140-400) K/mcL Neutrophils # 7.1 (1.6-8.9) K/mcL BMP 11/18/17 04:08 Sodium 127 L Potassium 4.2 Chloride 94 L Carbon Dioxide 25 BUN 25 H Creatinine 0.99 Glucose 169 H Calcium 9.5 Urine 11/18/17 Range/Units 17:30 Urine Color Yellow (Yellow) Urine Clarity Cloudy A (Clear) Urine pH 6.5 (5.0-8.0) pH Units Ur Specific [place] 1.022 (1.010-1.025) Urine Protein Trace (Neg-Trace) mg/dL Urine Glucose (UA) 250 H (Normal) mg/dL - ABG Interpretation ABG results: PT/INR, D-dimer PT 10.7 Seconds (9.4-12.1) 11/17/17 21:03 - Impressions Impressions Shoulder X-Ray 11/18/17 11:36 IMPRESSION: Right shoulder reverse total arthroplasty without evidence of hardware complication. D/ / Johny Brody MD / Johny Brody MD Interpreting Provider: Johny Brody MD - VTE Documentation of Mechanical Device: Venous foot pump, device Consult Discharge Plan - Plan Additional Instructions: F/up with Orthopedics in 1-2 weeks F/up with PCP in 1-2 weeks Referrals: Arnel Gonzalez MD [Primary Care Provider] - Prescriptions: OxyCODONE Immed Rel [Roxicodone 5 MG] 5 mg PO Q6HR PRN 7 Days #28 tablet PRN Reason: Severe Pain Acetaminophen [Acetaminophen ER] 650 mg PO Q6H PRN 7 Days #28 tablet.er PRN Reason: Mild To Moderate Pain Docusate [Colace] 100 mg PO BID #20 capsule Losartan [Cozaar] 100 mg PO DAILY #60 tablet
[2017-11-18] MEDS: CeFAZolin Premix DUPLEX 2,000 MG/50 ML BAG IVPB SCH (19:40)
--- NOTE | 2017-11-18 23:17 | Electrocardiograph Report ---
[place] [id number] Test Date: 2017-11-17 Pat Name: Mary Ann Muniz Department: 104 Room: [facility] Gender: F Manager Electronic: EDGARDO : 1945 Requested By: Alpesh Cullen Order Number: [id number] Reading MD: Gee You DO Measurements Intervals [place] Rate: 74 P: 53 MD: 189 QRS: -16 QRSD: 103 T: 64 QT: 387 QTc: 415 Interpretive Statements SINUS RHYTHM NONSPECIFIC ST-T CHANGES Electronically Signed On 11-18-2017 23:15:52 EDT by Gee You DO
[2017-11-19] MEDS: Insulin LISPRO 300 UNITS/3 ML VIAL SQ SCH ×3 (00:14→12:04)
[2017-11-19] MEDS: CeFAZolin Premix DUPLEX 2,000 MG/50 ML BAG IVPB SCH (03:53)
[2017-11-19] MEDS: *HR* Enoxaparin 30 MG/0.3 ML SYRINGE SQ SCH (05:54)
[2017-11-19 06:26] LABS: Hematocrit 27.3 % (35.3-44.9); Hemoglobin 9.2 g/dL (11.5-15.4)
[2017-11-19 08:23] LABS: Potassium 3.9 mEq/L (3.5-5.1)
[2017-11-19] MEDS: cloNIDine HCl 0.1 MG TABLET PO SCH (08:44)
[2017-11-19] MEDS ORDERED: Magnesium Oxide 400 MG TABLET PO SCH (09:00)
[2017-11-19] MEDS ORDERED: Losartan/HCTZ 50-12.5 TABLET PO SCH (09:00)
[2017-11-19] MEDS ORDERED: Aspirin 81 MG TAB.CHEW PO SCH ×2 (09:00)
[2017-11-19] MEDS ORDERED: Isosorbide MONOnitrate (24 HR) 60 MG TAB.ER.24H PO SCH (09:00)
--- NOTE | 2017-11-19 09:52 | Orthopedics Progress Note ---
Date of Encounter: 11/19/17 Time of Encounter: 09:51 Subjective Interval history: Patient was seen this morning doing well without complaints. Afebrile vital signs stable. Operative extremity: Neurovascularly intact Dressing clean dry and intact Calves nontender Assessment and plan: Continue with postoperative care Hemoglobin 9.2 stable for discharge Objective Vital signs: Vital Signs Temp Pulse Resp BP Pulse Ox 11/19/17 07:00 98.8 F 75 16 134/67 96 11/19/17 03:54 98.7 F 73 16 127/71 94 11/18/17 23:18 97.9 F 79 14 130/73 96 11/18/17 19:27 98.7 F 97 18 154/88 97 11/18/17 17:28 98.4 F 90 18 161/87 99 11/18/17 16:06 98.0 F 77 16 144/79 98 11/18/17 15:10 98.2 F 77 16 147/78 98 11/18/17 14:16 97.9 F 73 16 135/83 98 11/18/17 13:56 97.6 F 88 18 160/90 95 11/18/17 13:39 98.1 F 73 16 161/87 97 11/18/17 13:29 73 16 154/96 96 11/18/17 13:19 98.1 F 74 16 156/83 95 11/18/17 13:09 77 16 167/86 96 11/18/17 12:59 75 16 188/99 96 11/18/17 12:49 97.9 F 72 16 180/95 99 11/18/17 11:33 70 18 180/98 98 11/18/17 11:00 64 18 130/73 98 Intake and Output 11/18/17 11/19/17 11/19/17 23:59 07:59 15:59 Intake Total 530 / 530 Output Total 1750 / 1750 600 / 600 Balance -1220 / -1220 -600 / -600 Intake: IV Fluids 50 / 50 Ancef Premix DUPLEX 2,000 mg In 50 / 50 50 ml @ 100 mls/hr IVPB Q8H [facility]ES[facility] Rx#:[id number] Oral 480 / 480 Output: Urine 1750 / 1750 600 / 600 Other: Meal Dinner Percent of Meal Consumed 100% # Voids 1 Blood Glucose* 231 213 - Labs CBC & BMP: 11/19/17 05:58 11/19/17 05:58 Labs: Abnormal lab results RBC 3.40 M/mcL (3.82-4.97) L 11/18/17 04:08 Hgb 9.2 g/dL (11.5-15.4) L 11/19/17 05:58 Hct 27.3 % (35.3-44.9) L 11/19/17 05:58 MPV 9.3 fL (9.4-12.4) L 11/18/17 04:08 APTT 24.2 Seconds (26.0-36.0) L 11/17/17 21:03 Sodium 126 mEq/L (136-145) L 11/19/17 05:58 Chloride 93 mEq/L (98-107) L 11/19/17 05:58 BUN 29 mg/dL (8-23) H 11/19/17 05:58 Est GFR ( Amer) 54 (> 60) L 11/19/17 05:58 Est GFR (Non-Af Amer) 44 (> 60) L 11/19/17 05:58 Glucose 203 mg/dL (70-105) H 11/19/17 05:58 POC Glucose 213 (58-89) H 11/19/17 05:35 Calculated Osmolality 274 (280-300) L 11/19/17 05:58 Urine Clarity Cloudy (Clear) A 11/18/17 17:30 Urine Glucose (UA) 250 mg/dL (Normal) H 11/18/17 17:30 Urine Ketones Trace mg/dL (Negative) H 11/18/17 17:30 Urine Nitrite Positive (Negative) A 11/18/17 17:30 Ur Leukocyte Esterase Small (Negative) H 11/18/17 17:30 Urine Microscopic WBC 5-15 per hpf (0-3) H 11/18/17 17:30 Ur Squamous Epith Cells Many per lpf (None-Few) H 11/18/17 17:30 Urine Bacteria Moderate per hpf (None-Few) H 11/18/17 17:30 - VTE Documentation of Mechanical Device: Intermittent pneumatic compression device Consult Discharge Plan - Plan Referrals: Arnel Gonzalez MD [Primary Care Provider] -
[2017-11-19 11:32] VITALS: BP 138/73
[2017-11-19] MEDS ORDERED: Dextrose Gel 15 GM/37.5 ML TUBE PO PRN ×2 (12:56)
[2017-11-19] MEDS ORDERED: *HR* Dextrose 50 % in Water (Syg) 50 ML SYRINGE IVP PRN (12:56)
[2017-11-19] MEDS ORDERED: D5% in Water 1,000 ML IVC PRN (12:56)
[2017-11-19] MEDS ORDERED: Insulin DETEMIR 100 UNIT/ML X5UNITS SQ SCH (13:00)
[2017-11-19] MEDS ORDERED: *HR* OxyCODONE/APAP 5/325 TABLET PO PRN (13:59)
[2017-11-19 14:34] LABS: Estimated Average Glucose 137 mg/dl; Hemoglobin A1C 6.4 %
--- NOTE | 2017-11-19 15:39 | Discharge Summary ---
Orders not resulted at time of discharge: Pending orders 11/18/17 12:30 Surgical Pathology [PTH] Routine 11/20/17 04:00 Hemoglobin and Hematocrit [HEME] AM 0400 Date of Encounter: 11/19/17 Time of Encounter: 13:45 - Discharge Diagnosis (1) Dislocation of right shoulder joint Priority: Primary Status: Acute Qualifiers: Encounter type: initial encounter Qualified Code(s): S43.004A - Unspecified dislocation of right shoulder joint, initial encounter (2) Hypothyroidism Priority: Secondary Status: Chronic Qualifiers: Hypothyroidism type: unspecified Qualified Code(s): E03.9 - Hypothyroidism , unspecified (3) CAD (coronary artery disease) Priority: Secondary Status: Chronic Qualifiers: Coronary Disease-Associated Artery/Lesion type: bypass graft [place] vs. 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 Muniz is a 72 year old female with the above medical problems, who presented with acute right shoulder pain after sustaining a mechanical fall while swinging her grandson in the swing. Right shoulder CT showed anterior dislocation of shoulder, moderate sized hemarthrosis with intra-articular displaced fracture fragments. Orthopedic surgery was consulted, patient underwent right total shoulder replacement reverse, on 11/18/2017, after cardiology clearance with intermediate perioperative risk. Patient is doing significantly well postoperatively, pain is well controlled. Noted to have 2 g drop in hemoglobin, cleared by orthopedics for discharge. Physical and occupational therapy evaluation completed, possible outpatient therapy. Patient is noted to have mild hyponatremia, likely due to use of diuretics. Serum TSH noted to be normal. She is asymptomatic. Diuretics are being held at this time. Patient also has uncontrolled blood sugars in the hospital, likely due to pain and acute illness. Hemoglobin A1c noted to be 6.4%, she reports excellent glucose control as outpatient and is anxious to be discharged today. She is otherwise medically stable. Discharge discussed with: patient, family - Time Spent with Patient Total time spent providing and/or coordinating discharge services: Greater than 30 minutes (45 min) - Discharge Medications Prescriptions: OxyCODONE Immed Rel [Roxicodone 5 MG] 5 mg PO Q6HR PRN 7 Days #28 tablet PRN Reason: Severe Pain Acetaminophen [Acetaminophen ER] 650 mg PO Q6H PRN 7 Days #28 tablet.er PRN Reason: Mild To Moderate Pain Docusate [Colace] 100 mg PO BID #20 capsule Home Medications: Aspirin Enteric Coated [Aspirin EC] 81 mg PO DAILY 11/17/17 [History] Atorvastatin Calcium [Lipitor] 80 mg PO HS 11/17/17 [History] Dicyclomine [Bentyl] 10 mg PO QID 11/17/17 [History] Fish Oil/Dha/Epa [Fish Oil 1,200 mg Fish Oil] 1 each PO TID 11/17/17 [History] Glimepiride [Amaryl] 4 mg PO DAILY 11/17/17 [History] Isosorbide MONOnitrate (24 HR) [Imdur] 60 mg PO DAILY 11/17/17 [History] Levothyroxine [Synthroid] 88 mcg PO 0630 11/17/17 [History] Losartan/Hydrochlorothiazide [Hyzaar 100-25 Tablet] 1 each PO DAILY 11/17/17 [ History] Magnesium Oxide [Mag-Ox] 400 mg PO DAILY 11/17/17 [History] Metformin HCl [Glucophage] 1,000 mg PO DAILY 11/17/17 [History] Metoprolol Tartrate 75 mg PO BID 11/17/17 [History] Multivitamin [One Daily Multivitamin] 1 each PO DAILY 11/17/17 [History] Niacin [Niacor] 500 mg PO DAILY 11/17/17 [History] Oxybutynin [Ditropan] 5 mg PO BID 11/17/17 [History] Tramadol HCl [Ultram] 50 mg PO DAILY PRN 11/17/17 [History] cloNIDine HCl [Clonidine HCl] 0.2 mg PO BID 11/17/17 [History] Acetaminophen [Acetaminophen ER] 650 mg PO Q6H PRN 7 Days #28 tablet.er [Rx] Docusate [Colace] 100 mg PO BID #20 capsule 11/19/17 [Rx] OxyCODONE Immed Rel [Roxicodone 5 MG] 5 mg PO Q6HR PRN 7 Days #28 tablet [Rx] Allergies/Adverse Reactions: 3 Allergy/AdvReac Type Severity Reaction Status Date / Time carvedilol [From Coreg] AdvReac Palpitation Verified 11/17/17 16:07 s Date of admission: 11/17/17 22:24 Primary care physician: Arnel Gonzalez MD Consults: 11/18/17 08:36 Consult to Cardiology [CONS] Routine Comment: per Dr. Munroe Consulting Provider: Cardiology Sonja Reason for Consult: pre-op risk stratification Call Completed: Yes 11/18/17 14:00 Consult to Occupational Therapy [CONS] Routine Comment: post shoulder surgery Reason for Consult: post shoulder surgery Does patient have active BEDREST order?: No Is patient medically & hemodynamically stable?: Yes Consult to Physical Therapy [CONS] Routine Comment: post shoulder surgery Reason for Consult: post shoulder surgery Does patient have active BEDREST order?: No Is patient medically & hemodynamically stable?: Yes RT Post Op Consult [CONS] Routine Discharging clinician: Emily Lund Anticipated date of discharge: 11/19/17 - Constitutional Vitals: Temp Pulse Resp BP Pulse Ox 98.5 F 83 16 138/73 95 11/19/17 09:50 11/19/17 09:50 11/19/17 09:50 11/19/17 09:50 11/19/17 09:50 General appearance: Present: A&O X 3, no acute distress, answers questions appropriately - Cardiovascular Cardiovascular exam: Present: RRR, +S1, +S2. Absent: diastolic murmur, gallop, rubs, systolic murmur - Patient Status Disposition: Home, Self-Care Condition: Good Functional capacity at discharge: independent ambulation Overall status at discharge: patient is progressing back to baseline - Discharge Instructions Follow Up With: Arnel Gonzalez MD [Primary Care Provider] - Additional Instructions: F/up with Orthopedics in 1-2 weeks F/up with PCP in 1-2 weeks - Diet and Activity Activity: as per physical therapy Diet: diabetic diet, low fat, low cholesterol, low salt diet - VTE Documentation of Mechanical Device: Intermittent pneumatic compression device
[2017-11-19] MEDS ORDERED: Insulin LISPRO 300 UNITS/3 ML VIAL SQ SCH ×2 (16:30→21:00)
--- NOTE | 2017-11-19 18:03 | Event Note ---
Date of Encounter: 11/19/17 Time of Encounter: 11:55 PCR- POD#1 R TSR reverse Munroe 11/18/17 PCR - Patient seen at bedside. Daughter at bedside. Labwork and medications reviewed. Pain control: Adequate Neurovascualrly intact. Participating in PT. All questions and concerns addressed. Educated on use of incentive spirometer, ambulation, and hydration. Patient educated on post-operative restrictions and care. Addressed: Need script for discharge - printed. NO RESTRICTIONS. D/C plan: Home with outpatient therapy today
== END 2017-11-19 16:53 | disposition home or self-care (01) | DRG 483 ==
LOC: 3ANU 17:41 → EMEROO 17:41 → 3ANU 21:39 → SUATTDRO 22:24 → 3NENU 11-18 11:22
PROVIDERS: ADMIT Hospitalist; ATTEND Internal Medicine

== ENCOUNTER 2020-02-13 15:26 | Inpatient (IN) ==
[2020-02-13] MEDS: Nitroglycerin 0.4 MG TAB.SUBL SL SCH ×3 (16:12→16:27)
[2020-02-13 16:13] LABS: Basophils % 0.7 %; Eosinophils # 0.2 K/mcL (0.0-0.6); Eosinophils % 3.1 %; Hematocrit 38.5 % (35.3-44.9); Hemoglobin 12.8 g/dL (11.5-15.4); Immature Granulocytes % 0.5 % (0-4); Lymphocytes # 1.7 K/mcL (0.6-4.6); Lymphocytes % 26.8 %; Mean Corpuscular HGB Conc 33.2 g/dL (31.6-35.5); Mean Corpuscular Hemoglobin 31.4 pg (28.0-33.3); Mean Corpuscular Volume 94.4 fL (83.0-100.0); Monocytes # 0.6 K/mcL (0.0-1.3); Monocytes % 10.1 %; Neutrophils # 3.6 K/mcL (1.6-8.9); Platelet Count 259 K/mcL (140-400); Red Blood Count 4.08 M/mcL (3.82-4.97); Red Cell Distribution Width 11.9 % (11.5-14.5); Segmented Neutrophils % 58.8 %; White Blood Count 6.2 K/mcL (4.3-11.1)
[2020-02-13 16:16] LABS: VBG HCO3 26 mEq/L (21-27); VBG PCO2 47 mmHg (41-51); VBG PH 7.36 pH Units (7.32-7.42); VBG PO2 48 mmHg (25-50)
[2020-02-13 16:33] LABS: Alanine Aminotransferase 27 Units/L (7-52); Albumin 4.7 g/dL (3.5-5.7); Alkaline Phosphatase 85 Units/L (34-104); Aspartate Amino Transferase 23 Units/L (13-39); BUN/Creatinine Ratio 20 (6-26); Bilirubin,Total 1.1 mg/dL (0.3-1.0); Blood Urea Nitrogen 18 mg/dL (8-23); Carbon Dioxide 27 mEq/L (23-29); Chloride 93 mEq/L (98-107); Globulin 2.4 g/dL (2.4-3.5); Glucose 161 mg/dL (70-105); Osmolality,Calculated 271 (280-300); Potassium 4.7 mEq/L (3.5-5.1); Sodium 128 mEq/L (136-145); Total Protein 7.1 g/dL (6.4-8.9); eGFR For African Americans > 60 (> 60); eGFR For Non-African Americans > 60 (> 60)
[2020-02-13 16:41] LABS: Troponin I 0.03 ng/mL (< 0.04)
[2020-02-13] MEDS ORDERED: Aspirin 81 MG TAB.CHEW PO STA (16:41)
[2020-02-13] MEDS ORDERED: Isovue-370 500 ML BOTTLE IVP ONE (16:51)
[2020-02-13] MEDS ORDERED: 0.9 % Sodium Chloride 1,000 ML IVC ONE (18:27)
[2020-02-13] MEDS ORDERED: Ondansetron 4 MG/2 ML VIAL IVP STA (18:32)
[2020-02-13] MEDS ORDERED: *HR* Heparin 5,000 UNIT/ML VIAL IVP ONE (20:15)
[2020-02-13] MEDS ORDERED: Heparin 25,000 UNIT/250 ML D5W 25,000 UNIT/250 ML IV.SOLN IVC SCH (20:15)
[2020-02-13] MEDS ORDERED: *HR* Heparin 5,000 UNIT/ML VIAL IVP PRN ×2 (20:15)
[2020-02-13 20:27] LABS: Hematocrit 40.7 % (35.3-44.9); Hemoglobin 13.6 g/dL (11.5-15.4); Mean Corpuscular HGB Conc 33.4 g/dL (31.6-35.5); Mean Corpuscular Hemoglobin 31.5 pg (28.0-33.3); Mean Corpuscular Volume 94.2 fL (83.0-100.0); Platelet Count 258 K/mcL (140-400); Red Blood Count 4.32 M/mcL (3.82-4.97); Red Cell Distribution Width 11.9 % (11.5-14.5)
[2020-02-13 20:29] LABS: White Blood Count 9.5 K/mcL (4.3-11.1)
[2020-02-13 20:35] LABS: Heparin anti-factor XA UFH 0.05 IU/mL (0.30-0.70); INR 0.9; Prothrombin Time 10.7 Seconds (9.4-12.1)
[2020-02-14] MEDS ORDERED: *HR* Dextrose 50 % in Water (Syg) 50 ML SYRINGE IVP PRN (00:45)
[2020-02-14] MEDS ORDERED: D5% in Water 1,000 ML IVC PRN (00:45)
[2020-02-14] MEDS ORDERED: Dextrose Gel 15 GM/37.5 ML TUBE PO PRN ×2 (00:45)
[2020-02-14] MEDS ORDERED: Naloxone 0.4 MG/ML INJ IVP PRN (00:45)
[2020-02-14] MEDS ORDERED: *HR* Labetalol 20 MG/4 ML SYRINGE IVP PRN (00:51)
[2020-02-14] MEDS: Insulin LISPRO 300 UNITS/3 ML VIAL SQ SCH ×4 (01:06→16:53)
[2020-02-14 02:23] LABS: Basophils % 0.4 %; Eosinophils # 0.1 K/mcL (0.0-0.6); Eosinophils % 1.2 %; Hematocrit 36.6 % (35.3-44.9); Hemoglobin 12.6 g/dL (11.5-15.4); Immature Granulocytes % 0.3 % (0-4); Lymphocytes # 2.5 K/mcL (0.6-4.6); Lymphocytes % 22.6 %; Mean Corpuscular HGB Conc 34.4 g/dL (31.6-35.5); Mean Corpuscular Hemoglobin 31.9 pg (28.0-33.3); Mean Corpuscular Volume 92.7 fL (83.0-100.0); Mean Platelet Volume 9.3 fL (9.4-12.4); Monocytes # 0.9 K/mcL (0.0-1.3); Monocytes % 8.2 %; Neutrophils # 7.5 K/mcL (1.6-8.9); Platelet Count 265 K/mcL (140-400); Red Blood Count 3.95 M/mcL (3.82-4.97); Red Cell Distribution Width 11.9 % (11.5-14.5); Segmented Neutrophils % 67.3 %; White Blood Count 11.2 K/mcL (4.3-11.1)
[2020-02-14 02:40] LABS: Alanine Aminotransferase 25 Units/L (7-52); Albumin 4.3 g/dL (3.5-5.7); Albumin/Globulin Ratio 1.7 (1.1-2.2); Alkaline Phosphatase 75 Units/L (34-104); Aspartate Amino Transferase 25 Units/L (13-39); BUN/Creatinine Ratio 19 (6-26); Bilirubin,Total 1.1 mg/dL (0.3-1.0); Blood Urea Nitrogen 18 mg/dL (8-23); Calcium 9.5 mg/dL (8.6-10.3); Carbon Dioxide 23 mEq/L (23-29); Chloride 95 mEq/L (98-107); Globulin 2.5 g/dL (2.4-3.5); Glucose 149 mg/dL (70-105); Magnesium 1.8 mg/dL (1.6-2.6); Osmolality,Calculated 273 (280-300); Phosphorous 2.8 mg/dL (2.7-4.5); Potassium 4.2 mEq/L (3.5-5.1); Sodium 129 mEq/L (136-145); Total Protein 6.8 g/dL (6.4-8.9); eGFR For African Americans > 60 (> 60); eGFR For Non-African Americans 59 (> 60)
[2020-02-14 04:25] LABS: Bilirubin,Urine Negative (Negative); Blood,Urine Negative (Negative); Clarity,Urine Slightly Cloudy (Clear); Color,Urine Yellow (Yellow); Glucose,Urine (UA) Normal (Normal); Ketones,Urine Negative (Negative); PH,Urine 6.5 pH Units (5.0-8.0); Protein,Urine 100 mg/dL (Neg-Trace); Specific Gravity,Urine 1.019 (1.010-1.025); Urobilinogen,Urine Normal (Normal)
[2020-02-14 04:26] LABS: Leukocyte Esterase,Urine Small (Negative); Nitrite,Urine Negative (Negative)
[2020-02-14 04:38] LABS: WBC,Urine 0-3 per hpf (0-3)
[2020-02-14 04:40] LABS: Bacteria,Urine Many per hpf (None-Few)
[2020-02-14 04:41] LABS: Squamous Epithelial Cell,Urine Few per lpf (None-Few)
[2020-02-14] MEDS: Aspirin Enteric Coated 81 MG Tablet PO SCH (07:58)
[2020-02-14] MEDS: cloNIDine HCL 0.1 MG TABLET PO SCH ×2 (07:58→21:30)
[2020-02-14] MEDS: Isosorbide MONOnitrate (24 HR) 60 MG TAB.ER.24H PO SCH (07:59)
[2020-02-14] MEDS ORDERED: Nitroglycerin 1,000 MCG/10 ML VIAL IV ONE ×2 (12:13→13:41)
[2020-02-14] MEDS ORDERED: 0.9 % Sodium Chloride 1,000 ML ONE ×3 (12:13→18:28)
[2020-02-14] MEDS ORDERED: Heparin 1,000 UNITS/500 mL 500 ML ONE (12:13)
[2020-02-14] MEDS ORDERED: ISOVUE-370 200 ML INFUS..BTL ONE ×2 (12:13→13:39)
[2020-02-14] MEDS ORDERED: *HR* Heparin 10,000 UNIT/10 ML VIAL ONE (12:13)
[2020-02-14] MEDS ORDERED: *HR* Midazolam HCl 2 MG/2 ML VIAL ONE (12:21)
[2020-02-14] MEDS ORDERED: *HR* FentaNYL (PF) 100 MCG/2 ML VIAL ONE (12:21)
[2020-02-14] MEDS ORDERED: Ondansetron 4 MG/2 ML VIAL ONE ×2 (13:34→14:25)
[2020-02-14] MEDS ORDERED: Tirofiban 12.5 MG/250ML 12.5 MG/250 ML BAG ONE (13:47)
[2020-02-14] MEDS ORDERED: *HR* Ticagrelor 90 MG TABLET ONE (14:09)
[2020-02-14] MEDS ORDERED: Tirofiban 12.5 MG/250ML 12.5 MG/250 ML BAG IVC SCH (15:00)
[2020-02-14] MEDS ORDERED: Acetaminophen IV 500 MG/50 ML INFUS..BTL IVPB ONE (18:58)
[2020-02-14 19:08] LABS: Hematocrit 37.1 % (35.3-44.9); Hemoglobin 12.4 g/dL (11.5-15.4)
[2020-02-14] MEDS: *HR* Ticagrelor 90 MG TABLET PO SCH (23:25)
[2020-02-15] MEDS: Insulin LISPRO 300 UNITS/3 ML VIAL SQ SCH ×5 (00:44→20:29)
[2020-02-15 03:27] LABS: Basophils % 0.3 %; Eosinophils % 0.4 %; Hematocrit 34.3 % (35.3-44.9); Hemoglobin 11.5 g/dL (11.5-15.4); Immature Granulocytes % 0.4 % (0-4); Lymphocytes # 1.6 K/mcL (0.6-4.6); Lymphocytes % 15.5 %; Mean Corpuscular HGB Conc 33.5 g/dL (31.6-35.5); Mean Corpuscular Hemoglobin 31.8 pg (28.0-33.3); Mean Corpuscular Volume 94.8 fL (83.0-100.0); Mean Platelet Volume 9.4 fL (9.4-12.4); Monocytes # 0.9 K/mcL (0.0-1.3); Monocytes % 8.3 %; Platelet Count 253 K/mcL (140-400); Red Blood Count 3.62 M/mcL (3.82-4.97); Red Cell Distribution Width 12.3 % (11.5-14.5); Segmented Neutrophils % 75.1 %; White Blood Count 10.6 K/mcL (4.3-11.1)
[2020-02-15 05:30] LABS: Calcium 8.9 mg/dL (8.6-10.3); Magnesium 1.7 mg/dL (1.6-2.6); Phosphorous 3.8 mg/dL (2.7-4.5); Potassium 4.3 mEq/L (3.5-5.1)
[2020-02-15] MEDS: Aspirin Enteric Coated 81 MG Tablet PO SCH (08:58)
[2020-02-15] MEDS: Isosorbide MONOnitrate (24 HR) 60 MG TAB.ER.24H PO SCH (08:58)
[2020-02-15] MEDS: cloNIDine HCL 0.1 MG TABLET PO SCH ×2 (08:59→20:23)
[2020-02-15] MEDS ORDERED: Aspirin 81 MG TAB.CHEW PO SCH (09:00)
[2020-02-15] MEDS: *HR* Ticagrelor 90 MG TABLET PO SCH ×2 (09:02→20:23)
[2020-02-15] MEDS: Acetaminophen 325 MG TABLET PO PRN ×2 (12:37→20:47)
[2020-02-15] MEDS: Insulin DETEMIR 100 UNIT/ML X5UNITS SQ SCH (20:24)
[2020-02-16 02:51] LABS: Basophils % 0.3 %; Eosinophils # 0.3 K/mcL (0.0-0.6); Eosinophils % 3.6 %; Hematocrit 33.8 % (35.3-44.9); Hemoglobin 11.1 g/dL (11.5-15.4); Immature Granulocytes % 0.5 % (0-4); Lymphocytes # 2.1 K/mcL (0.6-4.6); Lymphocytes % 23.9 %; Mean Corpuscular HGB Conc 32.8 g/dL (31.6-35.5); Mean Corpuscular Hemoglobin 31.3 pg (28.0-33.3); Mean Corpuscular Volume 95.2 fL (83.0-100.0); Mean Platelet Volume 9.1 fL (9.4-12.4); Monocytes # 0.9 K/mcL (0.0-1.3); Monocytes % 10.2 %; Neutrophils # 5.3 K/mcL (1.6-8.9); Platelet Count 231 K/mcL (140-400); Red Blood Count 3.55 M/mcL (3.82-4.97); Red Cell Distribution Width 12.4 % (11.5-14.5); Segmented Neutrophils % 61.5 %; White Blood Count 8.6 K/mcL (4.3-11.1)
[2020-02-16 03:10] LABS: Calcium 9.3 mg/dL (8.6-10.3); Magnesium 1.9 mg/dL (1.6-2.6); Phosphorous 2.9 mg/dL (2.7-4.5)
[2020-02-16] MEDS ORDERED: 0.9 % Sodium Chloride 500 ML IVC ONE (07:33)
[2020-02-16] MEDS: Insulin LISPRO 300 UNITS/3 ML VIAL SQ SCH ×4 (08:15→20:01)
[2020-02-16] MEDS: Aspirin Enteric Coated 81 MG Tablet PO SCH (08:32)
[2020-02-16] MEDS: *HR* Ticagrelor 90 MG TABLET PO SCH ×2 (08:32→19:58)
[2020-02-16] MEDS: cloNIDine HCL 0.1 MG TABLET PO SCH ×2 (08:32→19:58)
[2020-02-16] MEDS: Insulin DETEMIR 100 UNIT/ML X5UNITS SQ SCH ×2 (08:32→19:58)
[2020-02-16] MEDS: Isosorbide MONOnitrate (24 HR) 60 MG TAB.ER.24H PO SCH (08:32)
[2020-02-16] MEDS ORDERED: Metoprolol XL (24 HR) Succ 25 MG TAB.ER.24H PO SCH (09:00)
[2020-02-16] MEDS ORDERED: 0.9 % Sodium Chloride 1,000 ML ONE (09:57)
[2020-02-16] MEDS: 0.9 % Sodium Chloride 1,000 ML IVC SCH (10:51)
[2020-02-16 11:30] LABS: Calcium 8.9 mg/dL (8.6-10.3)
[2020-02-16] MEDS: Acetaminophen 325 MG TABLET PO PRN (11:41)
[2020-02-16] MEDS ORDERED: Acetaminophen 325 MG TABLET PO PRN (13:52)
[2020-02-16] MEDS: Metoprolol XL (24 HR) Succ 25 MG TAB.ER.24H PO SCH (19:57)
[2020-02-17 03:39] LABS: Hematocrit 31.9 % (35.3-44.9); Hemoglobin 10.6 g/dL (11.5-15.4); Mean Corpuscular HGB Conc 33.2 g/dL (31.6-35.5); Mean Corpuscular Hemoglobin 31.5 pg (28.0-33.3); Mean Corpuscular Volume 94.7 fL (83.0-100.0); Mean Platelet Volume 9.7 fL (9.4-12.4); Platelet Count 225 K/mcL (140-400); Red Blood Count 3.37 M/mcL (3.82-4.97); Red Cell Distribution Width 12.5 % (11.5-14.5); White Blood Count 7.1 K/mcL (4.3-11.1)
[2020-02-17 03:47] LABS: BUN/Creatinine Ratio 20 (6-26); Blood Urea Nitrogen 21 mg/dL (8-23); Calcium 9.1 mg/dL (8.6-10.3); Carbon Dioxide 20 mEq/L (23-29); Chloride 106 mEq/L (98-107); Glucose 125 mg/dL (70-105); Osmolality,Calculated 286 (280-300); Potassium 4.5 mEq/L (3.5-5.1); Sodium 136 mEq/L (136-145); eGFR For African Americans > 60 (> 60); eGFR For Non-African Americans 52 (> 60)
[2020-02-17] MEDS: 0.9 % Sodium Chloride 1,000 ML IVC SCH (05:50)
[2020-02-17] MEDS: Aspirin Enteric Coated 81 MG Tablet PO SCH (07:44)
[2020-02-17] MEDS: *HR* Ticagrelor 90 MG TABLET PO SCH (07:44)
[2020-02-17] MEDS: Isosorbide MONOnitrate (24 HR) 60 MG TAB.ER.24H PO SCH (07:44)
[2020-02-17] MEDS: Metoprolol XL (24 HR) Succ 25 MG TAB.ER.24H PO SCH (07:44)
[2020-02-17] MEDS: cloNIDine HCL 0.1 MG TABLET PO SCH (07:44)
[2020-02-17] MEDS: Insulin LISPRO 300 UNITS/3 ML VIAL SQ SCH ×2 (07:47→11:40)
[2020-02-17] MEDS: Insulin DETEMIR 100 UNIT/ML X5UNITS SQ SCH (07:49)
[2020-02-17 11:10] VITALS: BP 136/76
== END 2020-02-17 16:00 | disposition home or self-care (01) | DRG 247 ==
LOC: 2NNU 15:26 → EMEROOARM 15:26 → SUATTDRO 21:43 → 2NNU 22:21 → SUATTDRO 02-14 13:58
PROVIDERS: ADMIT Family Medicine; ATTEND Family Medicine